=== PATIENT | male | born 1995 | race Caucasian/White ===

== ENCOUNTER 2020-10-07 13:15 | Emergency (ER) | payer SELFPAY ==
[2020-10-07 13:16] VITALS: BP 134/84; PULSE 80; RESP 18; TEMP 36.8; O2SAT 100; BMI 22.0
--- NOTE | 2020-10-07 13:47 | ED.VIS.DENTA ---
HPI History of Present Illness Chief Complaint: Dental Informant: patient Onset/Context/Timing Onset: Days (Approximately 3 days ago) Context: Sudden Onset Timing: Continuous Quality: Pain Location: Right lower molar Current Severity: Moderate Maximum Severity: Severe Worsened by: Cold liquids Relieved by: NSAIDs Associated Symptoms Assocated Symptom - Dental: cold sensitivity; Negative for fever, jaw swelling, face swelling or hot sensitivity Narrative Narrative: Patient is a 25-year-old male who has allergy to Bactrim, doxycycline and cephalexin. He reports he gets hives. He presents with dental pain that started 3 days ago. He does have sensitivity to cold liquids. He is able to open and close his mouth completely. There have been no change in voice. He has had no difficulty swallowing. There is no history of valley fever, heart murmur, mitral prolapse or SBE. He denies IV drug use. He is not on any immunosuppressive meds. Prior similar symptoms: Yes Recent Illness/Hospitalization: No PFSH PFSH Medical History Anxiety Anxiety Home Medications clindamycin HCl [Cleocin HCl] 300 mg PO Q6H #28 capsule 10/07/20 [Rx Last Taken Unknown] oxycodone-acetaminophen 1 tab PO Q6H PRN PRN 3 Days #12 tablet 10/07/20 [Rx Last Taken Unknown] Allergy/AdvReac Type Severity Reaction Status Date / Time cephalexin [From Keflex] Allergy Other Verified 10/07/20 13:18 doxycycline Allergy Other Verified 10/07/20 13:18 sulfamethoxazole Allergy Other Verified 10/07/20 13:18 [From Bactrim] trimethoprim [From Bactrim] Allergy Other Verified 10/07/20 13:18 Social History (Updated 10/07/20 @ 13:[address] Rommel Valdez MD) household members: none Smoking Status: Current every day smoker tobacco type: cigarettes alcohol intake: current alcohol intake frequency: holidays/special occasions only substance use type: does not use ROS ROS ED Constitutional Constitutional ED: Denies chills, fever(s), subjective or sweats Eyes Eyes: Denies blurry vision, change in vision or other ENT ENT ED: Reports other Details: He denies drooling. ; Denies ear pain, rhinorrhea or sore throat Hematologic/Lymphatic Hematologic/Lymphatic: Denies easy bleeding or easy bruising Allergic/Immunologic Allergic/Immunologic ED: Denies mouth swelling, tongue swelling or urticaria EXAM Physical Exam Const Vital Signs: 10/07/20 13:16 Temperature 98.2 F Temperature Source Temporal Pulse Rate 80 Respiratory Rate 18 Blood Pressure 134/84 H Blood Pressure Mean 100 Pulse Ox 100 Oxygen Delivery Method Room Air Positive well nourished and well developed General Appearance ED: well developed and NAD HEENT HEENT Narrative: Tooth #30 has a large carry to the pulp and there is swelling of the gingiva the proximity of the tooth. There is no fluctuance. There is no submandibular lymphadenopathy. There is no evidence of Ludewig's angina. Negative for trauma or tenderness Mouth ED: Yes oral and palatal mucosa normal, Yes lips normal, Yes tongue normal, Yes salivary gland normal and No mouth trauma Mouth: oral and palatal mucosa normal, lips normal, tongue normal, salivary gland normal and No mouth trauma Teeth and Gingiva: abnormal tooth and associated gingiva, caries, gingiva abnormal and poor dentition Throat: posterior oropharynx normal Eyes PERRL and EOMs intact bilaterally General Eye ED: Negative for pale conjunctiva or scleral icterus Neck no lymphadenopathy, supple and no JVD General: normal visual inspection; Negative for anterior neck swelling or submandibular swelling Resp normal respiratory effort and clear to auscultation bilaterally Cardio regular rate, regular rhythm, S1 normal heart sound, S2 normal heart sound and no murmurs Neuro oriented x3 and CN's II-XII intact bilaterally Sensorium / Orientation: alert and oriented to person Psych mental status grossly normal Skin no rashes or lesions noted Skin Narrative: There is no evidence of facial cellulitis. MDM MDM MDM Narrative Medical decision making narrative: Patient has a large dental carry which is infected. Based on patient's allergy he was treated with clindamycin. He also was given opiate analgesic. He was instructed to take 600 mg of ibuprofen every 6 hours. He has ibuprofen at home. Discharge Plan Triage Chief Complaint: Dental ED Provider: Rommel Valdez Dx/Rx/DC Orders Clinical Impression: Symptomatic reversible pulpitis, Abscess, dental, Dental caries extending into pulp Instructions: Dental Abscess Prescriptions: New clindamycin HCl [Cleocin HCl] 300 MG capsule 300 mg PO Q6H Qty: 28 RF: 0 oxycodone-acetaminophen [oxycodone-acetaminophen] 1 TABLET tablet 1 tab PO Q6H PRN PRN (Reason: Pain) 3 Days Qty: 12 RF: 0 Primary Care Provider: Cali Lopez Disposition Disposition: Home, self care
[2020-10-07] MEDS: Clindamycin HCl 150 MG Capsule 300 MG PO (14:05)
== END 2020-10-07 14:08 | disposition home or self-care (01) ==
LOC: ED 13:57
PROVIDERS: Emergency Provider Emergency Medicine; PCP Family Medicine
DX: K04.01 Reversible pulpitis (principal); K04.7 Periapical abscess without sinus; K02.9 Dental caries, unspecified; Z88.1 Allergy status to other antibiotic agents; F17.210 Nicotine dependence, cigarettes, uncomplicated
CPT/HCPCS: 99283

== ENCOUNTER 2021-01-20 18:22 | Emergency (ER) | payer SELFPAY ==
[2021-01-20 18:23] VITALS: BP 107/88; PULSE 94; RESP 15; TEMP 36.7; O2SAT 98; BMI 22.8
--- NOTE | 2021-01-20 19:35 | ED.VIS.DENTA ---
HPI History of Present Illness Chief Complaint: Dental Informant: patient Onset/Context/Timing Onset: Today (The pain became significant today and he has reports intolerance to cold and hot liquids) and Weeks (Initial pain started 1 week ago) Context: Gradual Onset and Sudden Onset Timing: Continuous Quality: Pain Location: Right lower molars Current Severity: Mild Maximum Severity: Severe Worsened by: Hot and cold Associated Symptoms Assocated Symptom - Dental: cold sensitivity and hot sensitivity; Negative for fever, jaw swelling or face swelling Narrative Narrative: Patient is a 25-year-old male who called his dentist. He states he would would not be seen until Saturday. He presents because of severe pain. And cold liquids exacerbate his pain. He localized the pain to the right lower molars. He does denies difficulty opening closing his mouth. He denies change in voice or drooling. He denies a traumatic fever, heart murmur, mitral valve prolapse or being a immunosuppressive meds. He denies rash. Prior similar symptoms: No Recent Illness/Hospitalization: No PFSH PFSH Medical History Anxiety Anxiety Home Medications clindamycin HCl [Cleocin HCl] 300 mg PO Q6H #28 capsule 01/20/21 [Rx Last Taken Unknown] clonazepam 0.5 mg PO BID 01/20/21 [History Last Taken Unknown] hydrocodone-acetaminophen 1 tab PO Q6H PRN PRN 3 Days #10 tablet 01/20/21 [Rx Last Taken Unknown] naproxen 500 mg PO BID #14 tab 01/20/21 [Rx Last Taken Unknown] Allergy/AdvReac Type Severity Reaction Status Date / Time cephalexin [From Keflex] Allergy Other Verified 01/20/21 19:13 doxycycline Allergy Other Verified 01/20/21 19:13 sulfamethoxazole Allergy Other Verified 01/20/21 19:13 [From Bactrim] trimethoprim [From Bactrim] Allergy Other Verified 01/20/21 19:13 Surgical History no surgical history no surgical history Social History household members: none Smoking Status: Current every day smoker tobacco type: cigarettes alcohol intake: current alcohol intake frequency: holidays/special occasions only substance use type: does not use ROS ROS ED Constitutional Constitutional ED: Denies chills, fever(s), subjective or sweats Eyes Eyes: Denies blurry vision or change in vision ENT ENT ED: Denies ear pain, rhinorrhea or sore throat Cardiovascular Cardiovascular: Denies chest pain or palpitations Respiratory/Chest Respiratory/Chest: Denies cough or dyspnea Gastrointestinal Gastrointestinal: Denies nausea or vomiting Allergic/Immunologic Allergic/Immunologic ED: Denies mouth swelling, tongue swelling or urticaria EXAM Physical Exam Const Vital Signs: 01/20/21 18:23 Temperature 98.0 F Temperature Source Temporal Pulse Rate 94 Respiratory Rate 15 Blood Pressure 107/88 H Blood Pressure Mean 94 Pulse Ox 98 Oxygen Delivery Method Room Air Positive well nourished and well developed General Appearance ED: well developed; Negative for NAD HEENT HEENT Narrative: Patient has dental carry tooth #32 and dental carry with exposure of pulp of tooth #31. Tooth #30 is absent. There is no evidence of periodontal abscess. There is no trismus. There is no evidence of Ludewig's angina. Trachea is midline there is no in-store expiratory stridor. Face and Sinus: sinuses nontender Mouth ED: Yes oral and palatal mucosa normal, Yes lips normal, Yes tongue normal, Yes salivary gland normal and No mouth trauma Mouth: oral and palatal mucosa normal, lips normal, tongue normal, salivary gland normal and No mouth trauma Teeth and Gingiva: abnormal tooth and associated gingiva, gingiva abnormal, poor dentition and teeth discoloration Throat: posterior oropharynx normal Eyes PERRL and EOMs intact bilaterally General Eye ED: Negative for pale conjunctiva or scleral icterus Neck no lymphadenopathy, supple and no JVD General: normal visual inspection Lymph Lymphatic: no lymphadenopathy noted and lymphadenopathy Chest Wall inspection of chest normal and palpation of chest normal Resp normal respiratory effort and clear to auscultation bilaterally Cardio regular rate, regular rhythm, S1 normal heart sound, S2 normal heart sound and no murmurs Neuro oriented x3 and CN's II-XII intact bilaterally Sensorium / Orientation: alert Psych mental status grossly normal Skin no rashes or lesions noted and no wounds MDM MDM MDM Narrative Medical decision making narrative: With sensitivity to hot and cold patient has a reversible pulpitis. Patient was treated with clindamycin, hydrocodone and naproxen. He was given enough pain medicine to allow him to be seen by his dentist on Saturday. Discharge Plan Triage Chief Complaint: Dental ED Provider: Rommel Valdez Dx/Rx/DC Orders Clinical Impression: Abscess, dental, Dental caries extending into pulp, Symptomatic irreversible pulpitis, Dental caries limited to enamel Instructions: Dental Abscess Prescriptions: New clindamycin HCl [Cleocin HCl] 300 MG capsule 300 mg PO Q6H Qty: 28 RF: 0 hydrocodone-acetaminophen [hydrocodone-acetaminophen] 1 TABLET tablet 1 tab PO Q6H PRN PRN (Reason: Pain) 3 Days Qty: 10 RF: 0 naproxen 500 MG tablet 500 mg PO BID Qty: 14 RF: 0 No Action clonazepam 0.5 mg tablet 0.5 mg PO BID RF: 0 Primary Care Provider: Cali Lopez Referrals: Cali Lopez MD [Primary Care Provider] - Disposition Disposition: Home, Self Care
[2021-01-20] MEDS: Naproxen 250 MG Tablet 500 MG PO (19:41)
[2021-01-20] MEDS: Clindamycin HCl 150 MG Capsule 300 MG PO (19:42)
[2021-01-20] MEDS: HYDROcodone Bitartrate/Apap 5/325 Tablet PO (19:42)
[2021-01-20 19:47] VITALS: BP 124/79; PULSE 102; RESP 20; O2SAT 97
--- NOTE | 2021-01-20 19:49 | ED.RN ---
THIS NURSE REVIEWED D/C INSTRUCTIONS WITH PT. PT VERBALIZED UNDERSTANDING OF INSTRUCTIONS. PT DENIES FURTHER NEEDS OR QUESTIONS AT THIS TIME. PT AMBULATES FROM ROOM ON OWN WITHOUT ASSISTANCE FROM STAFF
== END 2021-01-20 19:50 | disposition home or self-care (01) ==
PROVIDERS: Emergency Provider Emergency Medicine; PCP Family Medicine
DX: K04.7 Periapical abscess without sinus (principal); K04.02 Irreversible pulpitis; K02.61 Dental caries on smooth surface limited to enamel; F41.9 Anxiety disorder, unspecified; F17.210 Nicotine dependence, cigarettes, uncomplicated; Z79.1 Long term (current) use of non-steroidal anti-inflammatories (NSAID); Z79.899 Other long term (current) drug therapy
CPT/HCPCS: 99282

== ENCOUNTER 2021-02-10 00:42 | Emergency (ER) | payer SELFPAY ==
[2021-02-10 00:42] VITALS: BP 127/87; PULSE 110; RESP 18; TEMP 36.8; O2SAT 98; BMI 22.2
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
== END 2021-02-10 01:27 | disposition home or self-care (01) ==
PROVIDERS: Emergency Provider Emergency Medicine; PCP Family Medicine
DX: M85.641 Other cyst of bone, right hand (principal); M79.641 Pain in right hand; F41.9 Anxiety disorder, unspecified; F17.210 Nicotine dependence, cigarettes, uncomplicated; Z79.899 Other long term (current) drug therapy
CPT/HCPCS: 99282

== ENCOUNTER 2021-08-18 01:23 | Emergency (ER) | payer SELFPAY ==
[2021-08-18 01:24] VITALS: BP 160/75; PULSE 79; RESP 16; TEMP 36.8; O2SAT 99; BMI 23.1
[2021-08-18] MEDS: Naproxen 500 MG Tablet PO (01:38)
[2021-08-18] MEDS: Clindamycin HCl 150 MG Capsule 450 MG PO (01:38)
--- NOTE | 2021-08-18 04:50 | EDS_ITS ---
HPI History of Present Illness Chief Complaint: Dental Narrative Narrative: 26-year-old male with history of dental decay in the right mandibular region presenting with dental pain was started today. He states has had this in the past and he does not have a specific dentist but does have dental follow-up for tomorrow. He states that the pain is getting worse into tonight. He took ibuprofen 800 mg as well as Tylenol 650 mg. He denies any new trauma to his teeth. He does state that he was told in the past that these teeth need to be removed which included the premolar molar however this has not been done. Patient denies any facial swelling, difficulty swallowing or breathing, fever, chills. [facility] Medical History Anxiety Anxiety Home Medications clonazepam 0.5 mg PO BID 01/20/21 [History Last Taken Unknown] escitalopram oxalate [Lexapro] 5 mg PO DAILY 08/18/21 [History Last Taken Unkn own] Allergy/AdvReac Type Severity Reaction Status Date / Time cephalexin [From Keflex] Allergy Other Verified 08/18/21 01:25 doxycycline Allergy Other Verified 08/18/21 01:25 sulfamethoxazole Allergy Other Verified 08/18/21 01:25 [From Bactrim] trimethoprim [From Bactrim] Allergy Other Verified 08/18/21 01:25 Social History household members: none Smoking Status: Current every day smoker tobacco type: cigarettes alcohol intake: current alcohol intake frequency: holidays/special occasions only substance use type: does not use ROS ROS ED Constitutional Constitutional ED: Denies chills or fever(s) Eyes Eyes: Denies blurry vision or change in vision ENT ENT ED: Reports other Details: Right mandibular dental pain ; Denies rhinorrhea or sore throat Cardiovascular Cardiovascular: Denies chest pain or palpitations Respiratory/Chest Respiratory/Chest: Denies cough, dyspnea or sputum Gastrointestinal Gastrointestinal: Denies abdominal pain, nausea or vomiting Genitourinary Genitourinary ED: Denies dysuria or hematuria Musculoskeletal Musculoskeletal: Denies arthralgias or myalgias Integumentary Denies abscess or rash Neurologic Neurologic: Denies headache(s) or weakness EXAM Physical Exam Const Vital Signs: 08/18/21 01:24 Temperature 98.2 F Temperature Source Oral Pulse Rate 79 Respiratory Rate 16 Blood Pressure 160/75 H Blood Pressure Mean 103 Pulse Ox 99 Oxygen Delivery Method Room Air Positive well nourished General Appearance ED: NAD HEENT HEENT Narrative: Dental decay around right premolar and molar. Negative for trauma Mouth ED: Yes lips normal and Yes tongue normal Mouth: lips normal and tongue normal Teeth and Gingiva: abnormal tooth and associated gingiva Positive for tenderness and associated gingival edema Eyes PERRL and EOMs intact bilaterally Neck no lymphadenopathy and supple Resp normal respiratory effort and clear to auscultation bilaterally Cardio regular rate and regular rhythm Extremity normal to inspection Neuro oriented x3 and CN's II-XII intact bilaterally Sensorium / Orientation: alert Psych mental status grossly normal Skin no rashes or lesions noted MDM MDM MDM Narrative Medical decision making narrative: Patient with dental decay of the right premolar and molar. He states this is somewhat chronic but is worsened over the day. He is a dental follow-up that he can make tomorrow. He states that last time he had a problem with this clindamycin helped. He be placed on this here in the ER and given a prescription. He is given a prescription for Naprosyn as well. He was given a dental referral sheet just in case. He is discharged home in stable condition. Impression: 1. Dental caries 2. Dental pain Lab Data Attestation: I reviewed the patient's lab results. Discharge Plan Triage Chief Complaint: Dental ED Provider: Suman Barton Dx/Rx/DC Orders Instructions: ED Dental Pain, ED Dental Cavity Prescriptions: No Action clonazepam 0.5 mg tablet 0.5 mg PO BID RF: 0 escitalopram oxalate [Lexapro] 5 mg Tablet 5 mg PO DAILY RF: 0 Primary Care Provider: Jessenia Anand Referrals: Cali Lopez MD [NON-STAFF] - Disposition Disposition: Home, Self Care Discharge Date/Time: 08/18/21 01:42
== END 2021-08-18 01:42 | disposition home or self-care (01) ==
LOC: ED 01:39
PROVIDERS: Emergency Provider Student in an Organized Health Care Education/Training Program; PCP Physician Assistant; Visit Provider Student in an Organized Health Care Education/Training Program
DX: K08.89 Other specified disorders of teeth and supporting structures (principal); K02.9 Dental caries, unspecified; F17.210 Nicotine dependence, cigarettes, uncomplicated; Z79.899 Other long term (current) drug therapy
CPT/HCPCS: 99283